=== PATIENT | male | born 2000 | race Caucasian/White ===

== ENCOUNTER 2023-01-16 16:46 | Emergency (ER) | payer BC, MEDICARE, OTHER ==
[2023-01-16 17:21] VITALS: TEMP 97
[2023-01-16] MEDS ORDERED: Sodium Chloride 0.9% 1000 ML 1,000 ML IV STA (18:02)
[2023-01-16 18:13] LABS: Absolute Neutrophil Ct (ANC) 5.35 x10^3/uL (1.4-6.9); BASOPHIL % 0.6 % (0.0-0.4); Basophil (Absolute #) 0.05 x10^3/uL (0-0.4); Eosinophil % 1.6 % (0.00-5.0); Eosinophil (Absolute #) 0.13 x10^3/uL (0-0.5); Hematocrit 42.8 % (42-50); Hemoglobin 14.4 g/dL (12.5-18.0); IMMATURE GRAN # 0.04 x10^3u/L (0.00-0.03); IMMATURE GRAN % 0.5 % (0.00-0.4); Lymphocyte (Absolute #) 2.18 x10^3/uL (1.0-4.6); Lymphocytes % 26.1 % (24.0-44.0); Mean Cell Volume 87.3 fL (78-100); Mean Corpuscular Hemoglobin 29.4 pg (26-32); Mean Corpuscular Hgb Concent. 33.6 g/dL (32-36); Monocyte (Absolute #) 0.59 x10^3/uL (0.0-1.3); Monocytes % 7.1 % (0.0-12.0); Neutrophil % 64.1 % (36.0-66.0); Platelet Count 263 x10^3/uL (150-450); Red Cell Distribution Width 11.7 % (11.5-14.0); White Blood Count 8.3 x10^3/uL (4.0-10.5)
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
[2023-01-16 18:28] LABS: ALBUMIN 4.3 g/dL (3.5-5.0); ANION GAP 12.7 MEQ/L (5-15); BILIRUBIN,TOTAL 0.6 mg/dL (0.2-1.3); Calcium 9.5 mg/dL (8.4-10.2); Creatinine 1 1.33 mg/dL (0.66-1.25); EST GLOMERULAR FILTRATION RATE 77.5 ML/MIN; Potassium 4.3 mmol/L (3.5-5.1); Total Protein 7.2 g/dL (6.3-8.2)
[2023-01-16] MEDS ORDERED: Sodium Chloride 0.9% 1000 ML 1,000 ML ONE (18:29)
[2023-01-16 18:40] LABS: Appearance Clear (Clear); Bacteria None Seen /HPF (None Seen); Bilirubin Negative (Negative); Blood NHT (Negative); Epithelial Cells None Seen /HPF (None Seen); Glucose, Urine Negative (Negative); Hyaline Casts NONE SEEN /LPF (0-2); Ketones Trace (Negative); Leukocyte Esterase Negative (Negative); Nitrite Negative (Negative); Ph 7.5 (4.6-8.0); Protein,Urine Dip Trace (Negative); Specific Gravity 1.025 (1.005-1.030); WBC 0-2 /HPF (0-5)
[2023-01-16 18:48] LABS: ADD URINE CULTURE? YES (NO)
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
[2023-01-16 20:25] VITALS: BP 125/60; PULSE 72; RESP 16; O2SAT 99
[2023-01-16] MEDS ORDERED: KEFLEX 500 MG ONE (20:30)
[2023-01-16] MEDS: KEFLEX 500 MG PO ONE ×2 (20:31→20:32)
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
== END 2023-01-16 20:38 | disposition home or self-care (01) ==
LOC: ED 16:46
DX: S50.312A Abrasion of left elbow, initial encounter (principal); V86.55XA Driver of 3- or 4- wheeled all-terrain vehicle (ATV) injured in nontraffic accident, initial encounter; R91.1 Solitary pulmonary nodule; R07.89 Other chest pain; R10.9 Unspecified abdominal pain; M25.521 Pain in right elbow; M25.522 Pain in left elbow; M25.551 Pain in right hip; R51.9 Headache, unspecified
CPT/HCPCS: 36000; 36415; 70450; 71260; 72125; 73080; 74177; 80053; 81001; 83690; 84484; 85025; 87086; 96360; 99285; A9270-GY